=== PATIENT | female | born 1975 | race Caucasian/White ===

== ENCOUNTER → 2016-07-04 | Outpatient (CLI) | payer BC | LOC: LAB 15:51 | DX: E07.89 Other specified disorders of thyroid (principal); E03.9 Hypothyroidism, unspecified ==

== ENCOUNTER → 2018-03-01 | Outpatient (CLI) | payer BC ==
[2018-03-01 13:56] LABS: URINE WBC 0-1 /hpf (0-3)
== END ==
LOC: LAB 13:29
PROVIDERS: Nurse Practitioner Family
DX: N39.0 Urinary tract infection, site not specified (principal); R30.0 Dysuria

== ENCOUNTER 2018-07-30 06:59 | Emergency (ER) | payer BC ==
[~2018-07-30] VITALS: Ht 165.1 cm; Wt 57.3 kg
[2018-07-30] MEDS ORDERED: ARMOUR THYROID60 M1 PO (07:09)
[2018-07-30 08:06] LABS: HEMATOCRIT 35.8 % (37.0-47.0); HEMOGLOBIN 12.7 g/dL (12.5-16.0); MEAN CELL VOLUME 82 fl (78-100); MEAN CORPUSCULAR HEMOGLOBIN 29 pg (27-31); MEAN CORPUSCULAR HGB CONC 36 g/dL (33-37); MEAN PLATELET VOLUME 10.3 fl (7.4-10.4); PLATELET COUNT 289 K/mm3 (130-400); RED BLOOD COUNT 4.38 M/mm3 (4.10-5.30); RED CELL DISTRIBUTION WIDTH 11.7 % (11.5-14.5); WHITE BLOOD COUNT 5.4 K/mm3 (4.8-10.8)
[2018-07-30 08:13] LABS: ALBUMIN 4.7 g/dL (3.5-5.0); ALT/SGPT 21 U/L (9-52); AST-SGOT 19 U/L (14-36); CALCIUM 9.9 mg/dL (8.4-10.2); CARBON DIOXIDE 26 mmol/L (22-30); GLUCOSE 111 mg/dL (65-105); POTASSIUM 3.8 mmol/L (3.6-5.0); SODIUM 136 mmol/L (137-145); TOTAL BILIRUBIN 1.1 mg/dL (0.2-1.3); TOTAL PROTEIN 7.7 g/dL (6.3-8.2)
[2018-07-30 08:14] LABS: ACETAMINOPHEN < 4 ug/mL (10-30); ALCOHOL IN-HOUSE < 10 mg/dL
[2018-07-30 08:17] LABS: LYMPHOCYTE 16 % (20-51); MONOCYTE 3 % (3-10); NEUTROPHILS 81 % (42-75)
[2018-07-30 08:19] LABS: URINE APPEARANCE CLEAR; URINE BILIRUBIN NEGATIVE (NEGATIVE); URINE BLOOD NEGATIVE (NEGATIVE); URINE COLOR YELLOW; URINE GLUCOSE NEGATIVE (NEGATIVE); URINE KETONE 2+ (NEGATIVE); URINE LEUKOCYTE ESTERASE NEGATIVE (NEGATIVE); URINE NITRATE NEGATIVE (NEGATIVE); URINE PROTEIN(semi-quant) TRACE mg/dL (NEGATIVE); URINE UROBILINOGEN NORMAL (NORMAL); URINE WBC 0-1 /hpf (0-3)
[2018-07-30] MEDS ORDERED: KLONOPIN 0.5MG0.5 MG PO (09:00)
[2018-07-30] MEDS ORDERED: LEXAPRO 10MG10 MG PO (09:00)
[2018-07-30 09:30] VITALS: BP 113/70
[2018-07-30] MEDS ORDERED: PROTONIX TR40 M1 PO (14:20)
== END 2018-07-30 09:35 | disposition home or self-care (01) ==
LOC: ED 06:59
PROVIDERS: Nurse Practitioner Primary Care
DX: F41.9 Anxiety disorder, unspecified (principal); F32.9 Major depressive disorder, single episode, unspecified; E86.0 Dehydration; E03.9 Hypothyroidism, unspecified
CPT/HCPCS: C9113; J2405; J7030

== ENCOUNTER → 2019-05-21 | Outpatient (CLI) | payer BC ==
[~2019-05-21] MED LIST: ARMOUR THYROID60 M1 PO; KLONOPIN 0.5MG0.5 MG PO; LEXAPRO 10MG10 MG PO; PROTONIX TR40 M1 PO
== END ==
LOC: MAMMO 13:00
DX: Z12.31 Encounter for screening mammogram for malignant neoplasm of breast (principal)